=== PATIENT | male | born 1955 | race Caucasian/White ===

== ENCOUNTER 2016-10-05 14:46 | Inpatient (IN) | payer OTHER, BC ==
[~2016-10-05] VITALS: Ht 177.8 cm; Wt 100.0 kg
[2016-10-06] MEDS ORDERED: LOSA100T PO (08:51)
[2016-10-06] MEDS ORDERED: HYDR25TA5 PO (08:51)
[2016-10-06] MEDS ORDERED: MELO-1 PO (08:51)
[2016-10-06] MEDS ORDERED: HYDR-3583 PO (08:51)
[2016-10-06] MEDS ORDERED: LYRI75CA PO (08:51)
[2016-10-06] MEDS ORDERED: TURM500C PO (08:53)
[2016-10-06] MEDS ORDERED: FISH1000 PO (08:53)
[2016-10-06] MEDS ORDERED: CINN500C PO (08:53)
[2016-10-11] MEDS ORDERED: CHLORHEXIDINE GLUCONATE 2 % 1 PACK (2 CLOTHS) TOPICAL PRN (07:00)
[2016-10-11] MEDS ORDERED: SODIUM CHLORID 0.9% 500 ML IV PRN (07:00)
[2016-10-11] MEDS ORDERED: METOPROLOL TARTRATE 25 MG TAB PO PRN (07:00)
[2016-10-11] MEDS ORDERED: POVIDONE IODINE 5% (ANTISEPSIS KIT) 4 APPLICATIONS EACH NARE PRN (07:00)
[2016-10-11] MEDS ORDERED: LACTATED RINGER'S 1000 ML IV PRN (07:00)
[2016-10-11] MEDS ORDERED: INSULIN HUMAN REGULAR 1,000 UNITS/10 ML VIAL SQ PRN (07:00)
[2016-10-11] MEDS: SODIUM CHLOR 0.9% 1000 ML INJ 1,000 ML IV SCH (07:00)
[2016-10-11 07:15] VITALS: BP 128/82; PULSE 66; RESP 18; TEMP 98.8; O2SAT 98
[2016-10-11] MEDS ORDERED: ceFAZolin 2 GM PREMIX 50 ML ONE ×2 (07:26→14:02)
[2016-10-11] MEDS ORDERED: GENTAMICIN SULFATE 80 MG/2 ML VIAL ONE (07:26)
[2016-10-11] MEDS ORDERED: GELFOAM SIZE 100 ONE (07:26)
[2016-10-11] MEDS ORDERED: THROMBIN (TOPICAL) 5,000 UNIT VIAL ONE (07:26)
[2016-10-11] MEDS: VANCOMYCIN HCL 1000 MG ON-CALL/NS 250 ML IV SCH ×4 (08:45)
[2016-10-11] MEDS ORDERED: ACETAMINOPHEN 1000 MG/100 ML VIAL IV ONE (09:04)
[2016-10-11] MEDS ORDERED: fentaNYL CITRATE 250 MCG/5 ML AMP ONE ×2 (09:04→09:05)
[2016-10-11] MEDS ORDERED: ARTIFICIAL TEARS OPTH OINT 3.5 APPLIC/3.5 GM TUBO ONE (09:04)
[2016-10-11] MEDS ORDERED: MIDAZOLAM HCL 2 MG/2 ML VIAL ONE ×2 (09:05)
[2016-10-11] MEDS ORDERED: FAMOTIDINE 20 MG/2 ML VIAL ONE (09:05)
[2016-10-11] MEDS ORDERED: ePHEDrine/NS 25 MG/5 ML SYR IV ONE (12:00)
[2016-10-11] MEDS ORDERED: NEOSTIGMINE 3 MG/3 ML SYR IV ONE (12:00)
[2016-10-11] MEDS ORDERED: LACTATED RINGER'S 1000 ML INJ 3,000 ML IV ONE (12:00)
[2016-10-11] MEDS ORDERED: PROPOFOL 200 MG/20 ML AMP IV ONE (12:00)
[2016-10-11] MEDS ORDERED: ONDANSETRON HCL 4 MG/2 ML VIAL IV PUSH ONE (12:00)
[2016-10-11] MEDS ORDERED: NALOXONE HCL 0.4 MG/ML AMP IV PRN (16:15)
[2016-10-11] MEDS ORDERED: SODIUM CHLORIDE 0.9% FLUSH 5 ML FLUSH IVF PRN (16:15)
[2016-10-11] MEDS ORDERED: MAGNESIUM HYDROXIDE SUSP 30 ML CUP PO PRN (16:15)
[2016-10-11] MEDS ORDERED: cloNIDine HCL 0.1 MG TAB PO/NG PRN (16:15)
[2016-10-11] MEDS ORDERED: CYCLOBENZAPRINE HCL 10 MG TAB PO PRN (16:15)
[2016-10-11] MEDS ORDERED: ACETAMINOPHEN 325 MG TAB PO PRN (16:15)
[2016-10-11] MEDS ORDERED: ACETAMINOPHEN/HYDROcodone 325 MG/10 MG TAB PO PRN ×2 (16:15)
[2016-10-11] MEDS ORDERED: diphenhydrAMINE HCL 50 MG/ML VIAL IV PRN (16:15)
[2016-10-11] MEDS ORDERED: MENTHOL LOZENGE BUCCAL PRN (16:15)
[2016-10-11] MEDS ORDERED: RESP: ALBUTEROL 2.5 MG/3 ML NEB (PRN) INH (16:15)
[2016-10-11] MEDS ORDERED: MORPHINE SULFATE 4 MG/ML INJ IV PUSH PRN (16:15)
--- NOTE | 2016-10-11 16:54 | PD.OP ---
Operative Report Date of Surgery: October 11, 2016 Preoperative Diagnosis: Lumbar spondylosis Postoperative Diagnosis: Lumbar spondylosis Procedure: L4-L5 laminectomy, interbody arthrodhesis using PEEK cage and autologous bone graft, L4-L5 instrumental fixation using transpedicular screws and rods, L4-L5 posterolateral fusion using autologous bone graft and demineralized bone matrix. Microsurgical dissection Anesthesia: general Surgeon: Ronny Cabrales Foot Orthopedist(s): hellen hermosillo Operation and Findings: INDICATIONS FOR THE SURGICAL PROCEDURE Mr Parra is a 60 year-old female who presented with intractable mechanical back pain and ryann evidence of lower extremity radiculopathy. she had history of a prior L5-S1 fusion done before and has developed severe adjacent level degenerative disk disease, with a disk herniation at L4-L5. She has failed nonsurgical management conservative treatment. A surgical decompression and arthrodhesis were indicated as a last resort. The [id number] details of the procedure, indications, alternatives, risks and potential complications were fully discussed with the patient. The patient fully understood. All the questions were answered. No guarantees were given. The patient voiced requesting the procedure and provided informed consents. The patient was offered the alternative of delaying the procedure and continuing with nonsurgical management. DETAILS OF THE SURGICAL PROCEDURE Prior to the procedure, the surgical incision was marked in the preoperative surgical holding room, and the procedure, risks, and potential complications revisited with the patient. Placement of electrodes for intraoperative neurophysiological monitoring was completed. The patient was taken to the operative room, and following induction of general anesthesia, endotracheal intubation was performed. A Hill catheter, bilateral MARSHA hose and sequential compression devices were placed and kept throughout the procedure. The patient was positioned prone, over a Severo table over bolsters , maintaining the normal spinal lordosis. All pressure in the preoperative surgical holding room points were carefully padded with eggcrate and gel mattress. The eyes were tapped shut after ointment was applied by the anesthesiologist to prevent corneal abrasion. A Epi hugger was placed over the exposed lower body to maintain control of the core body temperature. The electrophysiological team placed the needles and electrodes in their proper location and baseline SSEP's and motor evoked potentials were registered. The entrance to each pedicles was marked using a C-arm. The lumbar region was prepped and draped in the usual sterile fashion. The surgical procedure was performed in several steps as follow: SURGICAL APPROACH Once the patient was positioned, a localizing cross-table lateral x-ray was performed with a C-arm.. A microsurgical self-retaining retractor was placed on the incision, and a localizing lateralizing cross-table x-ray was performed with an instrument underneath a lamina of the lumbar spine. INSTRUMENTAL FIXATION At this point in the procedure, placement of bilateral transpedicular screws was necessary for stabilization of the spine. Initially, the cross links from the previous instrumentation were removed, following by removal of the screw caps at L5 to S1. The cross link and rods were carefully removed. Then transpedicular screws were placed at L4. Initially, the entry point for the screw was selected anatomically at the junction of the facet, with the transverse process, and the pars interarticularis at L4. This was started with a Giamshetti needle followed by the use of a leonardo wire. A tap was used to create the threads for the screws. Finally bilateral transpedicular screws were carefully placed bilaterally at L4, under fluoroscopic visualization. An appropriate purchase was achieved with all screws. The position of each screw was assessed anatomically with an AP, lateral, oblique Xrays. An intraoperative scan view of the spine was then performed using the iso-centric c-arm. Each screw was then assessed electrophysiologically stimulating each screw with a nerve stimulator. SURGICAL DECOMPRESSION There was significant mass effect with compression of the neural structures. In order to relieve neural compression, it was necessary to perform a decompressive laminectomy, with decompression of the spinal canal and lateral recess. Note that the scope of such decompression was significantly more extensive than the minimal exposure necessary to perform an interbody fusion, as there was extreme facet arthropathy with near complete collapse of the disk spaces and severe stenosis cause by the hypertrophic joint facets. At this point of the procedure the operative microscope was draped in the usual sterile fashion and brought to the field. The rest of the surgical procedure was performed using microdissection technique with the exception of the closure. The margins of the previous laminectomy were exposed. Under the operating microscope, a bilateral decompressive laminectomy was carried out at L4-5 as follow: given the previous laminectomy and significant scaring which was threatening the dural sac, it was necessary to further drill the facet to allow proper exposure of the disk. The laminae, base of the spinous processes and facets were carefully drilled exposing the ligamentum flavum. The facets were abnormal, with instability. A disk protrusion was compressing the neural structures and exiting nerve roots. A near complete facetectomy was necessary resulting in further mechanical instability. The ligamentum flavum appeared hypertrophic, which in combination to scar tissue resulted on mass effect on the dorsal surface of the neural structures. The superior free border of the ligamentum flavum was elevated with a ligament dissector and the ligamentum flavum and scar tissue were removed with a 3 and 4 mm Kerrison forceps. The scar tissue and ligament were very adherent to the dural sac and during the dissection, and extreme care was taken during the dissection. The exiting nerve roots were identified, and a wide foraminotomy was performed with a Kerrison in their trajectory towards the neural foramen. Epidural veins located laterally to the dural sac were coagulated with the bipolar cautery, and then incised using microscissors. Gentle medial retraction of the dural sac allowed me to expose the disc space for the discectomy. Upon completion of the discectomy, an excellent decompression of the neural structures was achieved. Increased motion was noted thorough the procedure, which was consistent with mechanical instability. INTERBODY ARTHRODESIS In order to correct the narrowing of the disk space and maintain distraction of the space, and to achieve a solid interbody fusion, it was necessary the insertion of an interbody device into the disk space. Otherwise, the disk space would collapse, compromising the result of the surgical procedure. At this point of the procedure, the annulus fibrosus of the disk was carefully coagulated with a bipolar cautery and incised using an 11 bladed knife. Then, a microdiscectomy was carried out in a standard fashion using a combination of straight and up-biting pituitary forceps. A reverse angle curette was applied underneath the posterior longitudinal ligament, and used to push the disk fragments into the disk space, so they can be safely removed with a pituitary forceps. Once the discectomy was completed, it was necessary to decorticate the endplates, in order to eliminate the cartilaginous endplate and to expose healthy bone appropriate to perform the interbody fusion. The endplates at L4-5 were then thoroughly decorticated using increasing size bone joe and ring curets, eliminating the cartilaginous fragments from both, the superior and inferior endplates. A disk space distractor was applied to the pedicle screws and gentle distraction was applied. This maneuver was assisted by the use of a disk distractor. Increased motility was noted at the disk, which was consistent with instability due to facet arthropathy. Once a thorough preparation of the disk space was achieved, the disk space was irrigated with antibiotic solution, and the interbody fusion was performed by carefully impacting PPEK cage. The disk space was filled with autologous bone graft. The cage was cartefully deployed and expanded. . A solid position of the cage with good purchase was achieved. The position of the cage was assessed anatomically with a probe and radiologically with the C-arm. POSTEROLATERAL FUSION The posterolateral fusion is a critical component to the procedure, to prevent future fatigue and failure of the instrumental fixation. Initially, the transverse processes of the vertebral bodies, lateral surface of the facets and the lateral gutters of the spine were carefully cleaned, eliminating all soft tissue and muscle attachments. The area was then irrigated with a large amount of antibiotic solution. Subsequently, the transverse processes, lateral surface of the facets, and lateral gutters of the spine were thoroughly decorticated using the TPS drill with a 5mm cutting kayla, exposing cancellous bone, in preparation for the posterolateral fusion. The incision was again irrigated with antibiotic solution. Then, the posterolateral fusion was then performed by carefully packing the lateral gutters of the spine at L4-5 with autologous bone combined with demineralized bone matrix. I packed as much bone as possible. COMPLETION OF THE INSTRUMENTATION AND CLOSURE The rods were brought to the field, applied to all the screws, and the screw caps were sequentially applied. AT L4-5 it was not possible to apply the caps as the screws were stripped. The old screws were removed and 50mm screws placed at L5 and 40mm at the right S1. It was not possible to place a screw at S1 on the left, as the previous screw was fractured. Compression was performed between the pedicle screws, and final tightening of the screws was completed using a torque wrench. The incision was again thoroughly irrigated with several liters of antibiotic solution, and hemostasis secured with the bipolar cautery. A Valsalva Maneuver performed by the anesthesiologist failed to show any evidence of cerebrospinal fluid leak or bleeding. A 7 mm fluted Severo-Porras drain was left in the epidural space and externalized through a separate stab incision. The incision was then closed in planes. 0 Vicryl was used in an interrupted fashion to close the thoracolumbar fascia and the superficial fascia. The subcutaneous tissue was then approximated using 3-0 Vicryl in an interrupted fashion. Special care was taken to avoid space. The skin was then closed with 4-0 Vicryl in a running, subcuticular fashion. Each plane of closure was irrigated with antibiotic solution. At the end of the procedure the sponge, needle and instrument counts were all correct. Estimated blood loss was 250 to 300 cc or less. No blood transfusion was given. No complications. The entire procedure was performed using continuous electrophysiological monitoring of the somato sensorial evoked potentials and EMG. The patient received prophylactic antibiotics. The patient was then extubated and transferred to the recovery room in stable condition. Ronny Cabrales MD October 11, 2016 16:54
[2016-10-11] MEDS: NS + KCL 20 MEQ INJ 1,000 ML IV SCH (17:00)
[2016-10-11 17:05] VITALS: PULSE 127
[2016-10-11] MEDS ORDERED: DILTIAZEM HCL 25 MG/5 ML VIAL ONE (17:09)
[2016-10-11] MEDS ORDERED: AMIODARONE HCL 150 MG/3 ML VIAL ONE (17:27)
--- NOTE | 2016-10-11 17:43 | RADRPT ---
EXAM DATE/TIME: 10/11/2016 10:12 [facility] COMPARISON: No previous studies available for comparison. INDICATIONS : Fusion L4,L5 with replacement screw and rods L5,S1. MEDICAL HISTORY : None. SURGICAL HISTORY : Fusion, lumbar. Pain stimulator. ENCOUNTER: Initial ACUITY: 1 day PAIN SCORE: Non-responsive. LOCATION: Lumbar spine. FINDINGS: 2 magnified C-arm spot views are centered over the lumbosacral junction. Posterior fixation involving L4, L5, and S1. This is bilateral at L4 and L5 with a right unilateral and S1. A fractured pedicle s crew seen at L1 on the left. Intervening bone graft device is in good position. Normal alignment. CONCLUSION: Limited images as detailed above. Tree Hanna Jr., MD on October 11, 2016 at 17:40 Board Certified Radiologist. This report was verified electronically.
[2016-10-11] MEDS ORDERED: DILTIAZEM HCL 25 MG/5 ML VIAL IV PRN ×2 (18:00)
[2016-10-11] MEDS ORDERED: DO NOT ADM ANY ANTICOAGULANT DRUGS PRN (18:00)
[2016-10-11] MEDS ORDERED: *MEPERIDINE 25 MG INJ VIAL PERIprocedural Use ONLY ONE (18:07)
[2016-10-11 18:12] LABS: ANION GAP 13 MEQ/L (5-15); BICARBONATE 23.8 MEQ/L (21.0-32.0); BLOOD UREA NITROGEN 15 MG/DL (7-18); CHLORIDE 103 MEQ/L (98-107); GLOMERULAR FILTRATION RATE 51 ML/MIN (>89); POTASSIUM 3.8 MEQ/L (3.5-5.1); SODIUM (NA) 140 MEQ/L (136-145)
[2016-10-11 18:16] LABS: CREATINE KINASE 336 U/L (39-308)
[2016-10-11 18:28] LABS: CKMB 2.6 NG/ML (0.5-3.6)
[2016-10-11] MEDS ORDERED: AMIODARONE 150 MG/D5W 97 ML BOLUS 60 MINUTES IV ONE ×2 (18:45)
[2016-10-11] MEDS ORDERED: DILTIAZEM HCL 25 MG/5 ML VIAL IV ONE ×2 (18:45)
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
[2016-10-11] MEDS: HYDROmorphone HCL PCA 6 MG/30 ML IV SCH (19:13)
[2016-10-11] MEDS ORDERED: *HYDROmorphone PF 1 MG VIAL PERIprocedural Use ONLY ONE (19:13)
[2016-10-11] MEDS ORDERED: LORazepam 2 MG/ML VIAL ONE (19:23)
[2016-10-11 21:00] VITALS: PULSE 75
[2016-10-11] MEDS: PREGABALIN 75 MG CAP PO SCH (21:00)
[2016-10-11] MEDS: DOCUSATE SODIUM 100 MG CAP PO SCH (21:00)
[2016-10-11] MEDS: SODIUM CHLORIDE 0.9% FLUSH 5 ML FLUSH IVF SCH (21:00)
[2016-10-11] MEDS ORDERED: NON-FORMULARY DRUG (Omega-3 Fatty Acids (Fish Oil) 1 CAP) PO SCH (21:00)
[2016-10-11] MEDS: PCA - TOTAL MG DILAUDID DELIVERED PER SHIFT SCH (22:30)
[2016-10-11] MEDS: ceFAZolin 2 GM PREMIX 50 ML IV SCH (23:10)
[2016-10-12] VITALS (7 sets, daily range): BP systolic 112–141; BP diastolic 55–78; PULSE 62–80; RESP 15–23; TEMP 97.2–97.9; O2SAT 96–100
[2016-10-12] MEDS: NS + KCL 20 MEQ INJ 1,000 ML IV SCH ×2 (03:20→14:09)
[2016-10-12] MEDS ORDERED: ONDANSETRON HCL 4 MG/2 ML VIAL ONE ×2 (04:13→09:12)
[2016-10-12] MEDS: PCA - TOTAL MG DILAUDID DELIVERED PER SHIFT SCH ×2 (05:50→14:00)
[2016-10-12 05:58] LABS: AUTOMATED NEUTROPHIL # 14.5 TH/MM3 (1.8-7.7); BASOPHIL % 0.1 % (0.0-2.0); HEMATOCRIT 38.6 % (39.0-51.0); HEMO FLAGS DIFF FINAL; LYMPH % 7.4 % (9.0-44.0); LYMPHOCYTE # 1.2 TH/MM3 (1.0-4.8); MEAN CELL VOLUME 89.4 FL (80.0-100.0); MEAN CORPUSCULAR HEMOGLOBIN 29.6 PG (27.0-34.0); MEAN CORPUSCULAR HGB CONC 33.1 % (32.0-36.0); MONO % 7.2 % (0.0-8.0); NEUT % 85.3 % (16.0-70.0); PLATELET COUNT 115 TH/MM3 (150-450); RED BLOOD COUNT 4.32 MIL/MM3 (4.50-5.90)
[2016-10-12 06:17] LABS: ANION GAP 8 MEQ/L (5-15); AST (GOT) 75 U/L (15-37); BLOOD UREA NITROGEN 15 MG/DL (7-18); CHLORIDE 106 MEQ/L (98-107); GLOMERULAR FILTRATION RATE 61 ML/MIN (>89); MAGNESIUM 2.1 MG/DL (1.5-2.5); POTASSIUM 4.3 MEQ/L (3.5-5.1); SODIUM (NA) 140 MEQ/L (136-145)
[2016-10-12 06:20] LABS: ALKALINE PHOSPHATASE 50 U/L (45-117); ALT (GPT) 49 U/L (12-78); TOTAL BILIRUBIN ADULT 0.5 MG/DL (0.2-1.0)
[2016-10-12] MEDS: ceFAZolin 2 GM PREMIX 50 ML IV SCH ×2 (06:22→14:10)
[2016-10-12] MEDS: SODIUM CHLOR 0.9% 1000 ML INJ 1,000 ML IV SCH (07:00)
[2016-10-12] MEDS: SODIUM CHLORIDE 0.9% FLUSH 5 ML FLUSH IVF SCH ×2 (07:20→22:53)
[2016-10-12] MEDS: DOCUSATE SODIUM 100 MG CAP PO SCH ×2 (08:27→22:52)
[2016-10-12] MEDS: PANTOPRAZOLE SODIUM 40 MG VIAL IVP SCH (08:27)
[2016-10-12] MEDS: HYDROCHLOROTHIAZIDE 25 MG TAB PO SCH (08:27)
--- NOTE | 2016-10-12 08:52 | EKG ---
Date Performed: 10/11/2016 Time Performed: 17:17:33 PTAGE: 60 years EKG: ATRIAL FIBRILLATION WITH RAPID VENTRICULAR RESPONSE MARKED LEFT AXIS DEVIATION MINIMAL ST D EPRESSION ABNORMAL ECG PREVIOUS TRACING : 10/06/2016 08.29 DOCTOR: Clayton Waters Interpretating Date/Time 10/12/2016 08:49:36
[2016-10-12] MEDS: ONDANSETRON HCL 4 MG/2 ML VIAL IV PRN ×2 (09:17→18:32)
--- NOTE | 2016-10-12 09:20 | HHI.NSPN ---
(Danelle Johnson) Note Status Status: Progress Note (Danelle Johnson) Interval History Interval History Mr. Parra is a 60 y/o male s/p L4-5 laminectomy with interbody arthrodesis, posterolateral fixation using transpedicular screws and rods on 10/11/16. His surgery went well without complications. In recovery, patient developed A. Fib with RVR, cardioverted back to sinus rhythm following amiodarone and cardizem bolus. Negative troponin. He denies history of A. Fib or CVA. He denies dysarthria, hemiparesis, diplopia, chest pain, difficulty breathing. He c/o of nausea from pain medications. Pain currently controlled. (Danelle Johnson) Labs, Micro, & Vital Signs Results Date Time Temp Pulse Resp B/P Pulse Ox O2 Delivery O2 Flow Rate FiO2 10/12/16 09:11 100 Nasal Cannula 2.00 10/12/16 08:00 97.9 63 15 141/78 96 10/12/16 08:00 63 10/12/16 07:00 97 Nasal Cannula 3.00 10/12/16 06:00 65 10/12/16 04:45 80 10/12/16 04:45 97.5 62 23 115/71 96 10/12/16 04:00 74 10/12/16 04:00 97.5 74 12 123/64 98 Nasal Cannula 3 10/12/16 03:00 87 13 147/76 97 Nasal Cannula 3 10/12/16 02:00 73 12 141/73 98 Nasal Cannula 3 10/12/16 02:00 73 10/12/16 01:00 97.6 69 14 118/61 98 Nasal Cannula 3 10/12/16 00:00 71 10/12/16 00:00 71 14 126/57 97 Nasal Cannula 3 10/11/16 23:00 82 12 116/74 98 Nasal Cannula 3 10/11/16 22:30 12 10/11/16 22:30 12 10/11/16 22:00 77 10/11/16 22:00 77 13 107/58 97 Nasal Cannula 3 10/11/16 21:00 75 10/11/16 21:00 75 14 101/56 98 Nasal Cannula 3 10/11/16 19:13 16 10/11/16 18:45 78 15 102/62 97 Nasal Cannula 4 10/11/16 18:30 88 15 114/59 97 Nasal Cannula 4 10/11/16 18:20 88 10/11/16 18:15 123 15 133/74 97 Nasal Cannula 4 10/11/16 18:00 131 15 185/117 99 Nasal Cannula 4 10/11/16 17:45 103 15 152/83 95 Nasal Cannula 4 10/11/16 17:30 123 15 181/135 90 Nasal Cannula 4 10/11/16 17:15 113 15 110/68 98 Nasal Cannula 4 10/11/16 17:05 127 10/11/16 17:05 97.5 127 15 118/67 97 Nasal Cannula 4 10/12/16 07:00 Intake Total 9042 ml Output Total 4890 ml Balance 4152 ml Constitutional Vital Signs Date Time Temp Pulse Resp B/P Pulse Ox O2 Delivery O2 Flow Rate FiO2 10/12/16 09:11 100 Nasal Cannula 2.00 10/12/16 08:00 97.9 63 15 141/78 96 10/12/16 08:00 63 10/12/16 07:00 97 Nasal Cannula 3.00 10/12/16 06:00 65 10/12/16 04:45 80 10/12/16 04:45 97.5 62 23 115/71 96 10/12/16 04:00 74 10/12/16 04:00 97.5 74 12 123/64 98 Nasal Cannula 3 10/12/16 03:00 87 13 147/76 97 Nasal Cannula 3 10/12/16 02:00 73 12 141/73 98 Nasal Cannula 3 10/12/16 02:00 73 10/12/16 01:00 97.6 69 14 118/61 98 Nasal Cannula 3 10/12/16 00:00 71 10/12/16 00:00 71 14 126/57 97 Nasal Cannula 3 10/11/16 23:00 82 12 116/74 98 Nasal Cannula 3 10/11/16 22:30 12 10/11/16 22:30 12 10/11/16 22:00 77 10/11/16 22:00 77 13 107/58 97 Nasal Cannula 3 10/11/16 21:00 75 10/11/16 21:00 75 14 101/56 98 Nasal Cannula 3 10/11/16 19:13 16 10/11/16 18:45 78 15 102/62 97 Nasal Cannula 4 10/11/16 18:30 88 15 114/59 97 Nasal Cannula 4 10/11/16 18:20 88 10/11/16 18:15 123 15 133/74 97 Nasal Cannula 4 10/11/16 18:00 131 15 185/117 99 Nasal Cannula 4 10/11/16 17:45 103 15 152/83 95 Nasal Cannula 4 10/11/16 17:30 123 15 181/135 90 Nasal Cannula 4 10/11/16 17:15 113 15 110/68 98 Nasal Cannula 4 10/11/16 17:05 127 10/11/16 17:05 97.5 127 15 118/67 97 Nasal Cannula 4 10/12/16 07:00 Intake Total 9042 ml Output Total 4890 ml Balance 4152 ml (Danelle Johnson) Review of Systems/Exam Exam Mr. Parra is alert, awake and oriented to time, place and person. Speech is fluent. Follows commands well. Cranial nerve examination: pupils equal, round and reactive to light. Extra- ocular movements are intact. Facial motor are normal and symmetrical. Neck is soft and supple Muscle strength is normal in all muscle groups of both upper and lower extremities. Sensory examination is intact to light touch in both the upper and lower extremities. There is a bilateral plantar flexion response. Cerebellar examination is unremarkable (Danelle Johnson) Medications Current Medications Current Medications Medications (Trade) Dose Ordered Sig/Esther Route PRN Reason Start Time Stop Time Status Last Admin Dose Admin Lactated Ringer's 1,000 ml @ 30 mls/hr Q24H PRN IV SEE LABEL COMMENTS 10/11/16 07:00 10/14/16 06:59 Sodium Chloride 500 ml @ 30 mls/hr [id number] PRN IV SEE LABEL COMMENTS 10/11/16 07:00 10/14/16 06:59 Sodium Chloride 1,000 ml @ 30 mls/hr Q24H IV 10/11/16 07:00 Potassium Chloride/Sodium Chloride (NS + KCl 20 Meq Inj) 1,000 ml @ 100 mls/hr Q10H IV 10/11/16 17:00 10/12/16 03:20 IV Flush (NS Flush) 2 ml UNSCH PRN IVF FLUSH AFTER USING IV ACCESS 10/11/16 16:15 IV Flush 2 ml 2 ml BID IVF 10/11/16 21:00 10/12/16 07:20 Cefazolin Sodium/ Dextrose (Ancef 2 Gm Premix) 50 ml @ 100 mls/hr Q8H IV 10/11/16 22:00 10/12/16 14:29 10/12/16 06:22 Docusate Sodium (Colace) 100 mg BID PO 10/11/16 21:00 10/12/16 08:27 Magnesium Hydroxide (Milk Of Magnesia Liq) 30 ml DAILY PRN PO CONSTIPATION 10/11/16 16:15 Pantoprazole Sodium (Protonix Inj) 40 mg DAILY IVP 10/12/16 09:00 10/12/16 08:27 Morphine Sulfate (Morphine Inj) 2 mg Q4HR PRN IV PUSH breakthrough pain 10/11/16 16:15 Cyclobenzaprine HCl (Flexeril) 10 mg Q8H PRN PO MUSCLE SPASM 10/11/16 16:15 Clonidine (Catapres) 0.1 mg Q6H PRN PO/NG SYS BP GREATER THAN 170 MMHG 10/11/16 16:15 Acetaminophen (Tylenol) 650 mg Q4H PRN PO TEMPERATURE > 101.5 F 10/11/16 16:15 Menthol ([place]) 1 lozenge UNSCH PRN BUCCAL SORE THROAT 10/11/16 16:15 Hydrochlorothiazide (Hydrodiuril) 25 mg DAILY PO 10/12/16 09:00 10/12/16 08:27 Losartan Potassium (Cozaar) 100 mg DAILY PO 10/12/16 09:00 Pregabalin (Lyrica) 75 mg HS PO 10/11/16 21:00 Naloxone HCl (Narcan Inj) 0.4 mg UNSCH PRN IV RESPIRATORY RATE LESS THAN 10 10/11/16 16:15 Diphenhydramine HCl (Benadryl Inj) 25 mg Q6H PRN IV ITCHING 10/11/16 16:15 Hydromorphone HCl (Dilaudid FIBERGLASS LAMINATOR Inj) 6 mg UNSCH IV 10/11/16 16:15 10/11/16 19:13 FIBERGLASS LAMINATOR Dosage Infused (Pha) 1 Q8HR .XX 10/11/16 16:15 10/12/16 05:50 Acetaminophen/ Hydrocodone Bitart ([place] 10-325 Mg) 1 tab Q4H PRN PO PAIN SCALE 1 TO 5 10/11/16 16:15 Acetaminophen/ Hydrocodone Bitart ([place] 10-325 Mg) 2 tab Q4H PRN PO PAIN SCALE 6 TO 10 10/11/16 16:15 Miscellaneous Information ALL NURSING DEPARTME... UNSCH PRN .XX SEE LABEL COMMENTS 10/11/16 18:00 10/12/16 17:59 (Danelle Johnson) Medical Decision Making MDM Remarks 60 y/o male s/p L4-5 PLIF on 10/11/16, POD 1, surgical pain controlled A. Fib with RVR converted back to NSR (Danelle Johnson) Plan Plan Remarks neuro exam stable, nonfocal, cont current pain mgt with FIBERGLASS LAMINATOR, oral Lortab prn IS every hour SCDs and TEDs for dvt proph, Protonix for ulcer proph dc gutierrez catheter PT, LSO when out of bed, (Danelle Johnson) Attending Statement The exam, history, and the medical decision-making described in the above note were completed with the assistance of the mid-level provider. I reviewed and agree with the findings presented. I attest that I had a [id number] encounter with the patient on the same day, and personally performed and documented my assessment and findings in the medical record. (Ronny Cabrales MD) Danelle Johnson October 12, 2016 09:19 Ronny Cabrales MD October 16, 2016 20:54
[2016-10-12] MEDS: LOSARTAN 50 MG TAB PO SCH (09:33)
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
[2016-10-12] MEDS: METOPROLOL TARTRATE 25 MG TAB PO SCH ×2 (10:00→22:52)
[2016-10-12] MEDS: HYDROmorphone HCL PCA 6 MG/30 ML IV SCH (11:05)
[2016-10-12] MEDS: PREGABALIN 75 MG CAP PO SCH (22:52)
[2016-10-13] VITALS (10 sets, daily range): BP systolic 97–130; BP diastolic 50–64; PULSE 70–78; RESP 18–20; TEMP 98.6–101.1; O2SAT 96–98
[2016-10-13] MEDS: NS + KCL 20 MEQ INJ 1,000 ML IV SCH ×4 (00:51→20:35)
[2016-10-13] MEDS: PCA - TOTAL MG DILAUDID DELIVERED PER SHIFT SCH ×3 (06:00→21:57)
[2016-10-13] MEDS: SODIUM CHLORIDE 0.9% FLUSH 5 ML FLUSH IVF SCH ×2 (09:00→20:33)
[2016-10-13] MEDS: LOSARTAN 50 MG TAB PO SCH (09:23)
[2016-10-13] MEDS: HYDROCHLOROTHIAZIDE 25 MG TAB PO SCH (09:24)
[2016-10-13] MEDS: DOCUSATE SODIUM 100 MG CAP PO SCH ×2 (09:24→20:33)
[2016-10-13] MEDS: METOPROLOL TARTRATE 25 MG TAB PO SCH ×2 (09:25→20:33)
[2016-10-13] MEDS: PANTOPRAZOLE SODIUM 40 MG VIAL IVP SCH (09:26)
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
--- NOTE | 2016-10-13 14:26 | HHI.NSPN ---
(Danelle Johnson) Note Status Status: Progress Note (Danelle Johnson) Interval History Interval History Mr. Parra is a 60 y/o male s/p L4-5 laminectomy with interbody arthrodesis, posterolateral fixation using transpedicular screws and rods on 10/11/16. His surgery went well without complications. In recovery, patient developed A. Fib with RVR, cardioverted back to sinus rhythm following amiodarone and cardizem bolus. Negative troponin. He denies history of A. Fib or CVA. He denies dysarthria, hemiparesis, diplopia, chest pain, difficulty breathing. He c/o of nausea from pain medications. Pain currently controlled. 10/13: sitting up in chair, surgical pain improving. nausea is better. denies chest pain, shortness of breath, difficulty breathing. (Danelle Johnson) Labs, Micro, & Vital Signs Results Date Time Temp Pulse Resp B/P Pulse Ox O2 Delivery O2 Flow Rate FiO2 10/13/16 12:14 99.3 73 20 104/64 98 10/13/16 11:38 98 21 10/13/16 08:01 98.6 76 20 121/63 98 10/13/16 05:43 99.5 73 18 97/50 97 10/13/16 02:57 71 10/13/16 01:17 99.9 72 20 102/52 97 10/12/16 20:00 97.9 74 20 112/55 100 10/12/16 16:30 97.2 72 20 123/62 99 10/12/16 14:24 97.8 71 18 129/67 99 10/13/16 07:00 Output Total 3310 ml Balance -3310 ml Constitutional Vital Signs Date Time Temp Pulse Resp B/P Pulse Ox O2 Delivery O2 Flow Rate FiO2 10/13/16 12:14 99.3 73 20 104/64 98 10/13/16 11:38 98 21 10/13/16 08:01 98.6 76 20 121/63 98 10/13/16 05:43 99.5 73 18 97/50 97 10/13/16 02:57 71 10/13/16 01:17 99.9 72 20 102/52 97 10/12/16 20:00 97.9 74 20 112/55 100 10/12/16 16:30 97.2 72 20 123/62 99 10/12/16 14:24 97.8 71 18 129/67 99 10/13/16 07:00 Output Total 3310 ml Balance -3310 ml (Danelle Johnson) Review of Systems/Exam Exam Mr. Parra is alert and oriented x 3 Speech is fluent. Follows commands well. Sitting up in chair with LSO brace. Cranial nerve examination: pupils equal, round and reactive to light. Facial motor are normal and symmetrical. Neck is soft and supple Muscle strength is normal in all muscle groups of both upper and lower extremities. Sensory examination is intact to light touch in both the upper and lower extremities. There is a bilateral plantar flexion response. (Danelle Johnson) Medications Current Medications Current Medications Medications (Trade) Dose Ordered Sig/Esther Route PRN Reason Start Time Stop Time Status Last Admin Dose Admin Potassium Chloride/Sodium Chloride (NS + KCl 20 Meq Inj) 1,000 ml @ 100 mls/hr Q10H IV 10/11/16 17:00 10/13/16 11:40 IV Flush (NS Flush) 2 ml UNSCH PRN IVF FLUSH AFTER USING IV ACCESS 10/11/16 16:15 IV Flush (NS Flush) 2 ml BID IVF 10/11/16 21:00 10/13/16 09:00 Docusate Sodium (Colace) 100 mg BID PO 10/11/16 21:00 10/13/16 09:24 Magnesium Hydroxide (Milk Of Magnesia Liq) 30 ml DAILY PRN PO CONSTIPATION 10/11/16 16:15 Pantoprazole Sodium (Protonix Inj) 40 mg DAILY IVP 10/12/16 09:00 10/13/16 09:26 Morphine Sulfate (Morphine Inj) 2 mg Q4HR PRN IV PUSH breakthrough pain 10/11/16 16:15 Cyclobenzaprine HCl (Flexeril) 10 mg Q8H PRN PO MUSCLE SPASM 10/11/16 16:15 10/12/16 18:37 Clonidine (Catapres) 0.1 mg Q6H PRN PO/NG SYS BP GREATER THAN 170 MMHG 10/11/16 16:15 Acetaminophen (Tylenol) 650 mg Q4H PRN PO TEMPERATURE > 101.5 F 10/11/16 16:15 Menthol ([place] Vijay) 1 lozenge UNSCH PRN BUCCAL SORE THROAT 10/11/16 16:15 Hydrochlorothiazide (Hydrodiuril) 25 mg DAILY PO 10/12/16 09:00 10/13/16 09:24 Losartan Potassium (Cozaar) 100 mg DAILY PO 10/12/16 09:00 10/13/16 09:23 Pregabalin (Lyrica) 75 mg HS PO 10/11/16 21:00 10/12/16 22:52 Naloxone HCl (Narcan Inj) 0.4 mg UNSCH PRN IV RESPIRATORY RATE LESS THAN 10 10/11/16 16:15 Diphenhydramine HCl (Benadryl Inj) 25 mg Q6H PRN IV ITCHING 10/11/16 16:15 Hydromorphone HCl (Dilaudid PARIMUTUEL TICKET CASHIER Inj) 6 mg UNSCH IV 10/11/16 16:15 10/12/16 11:05 PARIMUTUEL TICKET CASHIER Dosage Infused (Pha) 1 Q8HR .XX 10/11/16 16:15 10/12/16 14:00 Acetaminophen/ Hydrocodone Bitart ([place] 10-325 Mg) 1 tab Q4H PRN PO PAIN SCALE 1 TO 5 10/11/16 16:15 Acetaminophen/ Hydrocodone Bitart ([place] 10-325 Mg) 2 tab Q4H PRN PO PAIN SCALE 6 TO 10 10/11/16 16:15 Ondansetron HCl (Zofran Inj) 4 mg Q6H PRN IV NAUSEA OR VOMITING 10/12/16 09:15 10/12/16 18:32 Metoprolol Tartrate (Lopressor) 25 mg Q12HR PO 10/12/16 10:00 10/13/16 09:25 (Danelle Johnson) Medical Decision Making MDM Remarks 60 y/o male s/p L4-5 PLIF on 10/11/16, POD 2, surgical pain improving A. Fib with RVR converted back to NSR, stable (Danelle Johnson) Plan Plan Remarks neuro exam stable, nonfocal, cont surgical pain mgt with PARIMUTUEL TICKET CASHIER today, will dc tomorrow am, oral Lortab prn cont IS every hour SCDs and TEDs for dvt proph, Protonix for ulcer proph cont PT, LSO when out of bed, anticipate dc home tomorrow, dc home with Lopressor 25 mg BID for new onset paroxysmal atrial fibrillation per critical care recs (Danelle Johnson) Attending Statement The exam, history, and the medical decision-making described in the above note were completed with the assistance of the mid-level provider. I reviewed and agree with the findings presented. I attest that I had a [id number] encounter with the patient on the same day, and personally performed and documented my assessment and findings in the medical record. (Ronny Cabrales MD) Danelle Johnson October 13, 2016 14:26 Ronny Cabrales MD October 16, 2016 20:59
[2016-10-13] MEDS: PREGABALIN 75 MG CAP PO SCH (20:33)
[2016-10-13] MEDS: HYDROmorphone HCL PCA 6 MG/30 ML IV SCH (21:57)
[2016-10-14] VITALS: BP 122/67; PULSE 87; RESP 20; TEMP 99.1; O2SAT 96
[2016-10-14 04:00] VITALS: BP 113/77; PULSE 79; RESP 20; TEMP 99.2; O2SAT 97
[2016-10-14] MEDS: NS + KCL 20 MEQ INJ 1,000 ML IV SCH ×2 (05:00→06:30)
[2016-10-14] MEDS: PCA - TOTAL MG DILAUDID DELIVERED PER SHIFT SCH ×2 (06:00→12:11)
[2016-10-14 07:00] VITALS: BP 130/79; PULSE 90; RESP 20; TEMP 97.4; O2SAT 96
[2016-10-14] MEDS ORDERED: WALKER WHEELS/F1 MIS (08:49)
[2016-10-14] MEDS: SODIUM CHLORIDE 0.9% FLUSH 5 ML FLUSH IVF SCH (09:00)
[2016-10-14] MEDS ORDERED: HYDR-3583 PO ×2 (09:07→09:09)
[2016-10-14] MEDS: LOSARTAN 50 MG TAB PO SCH (09:20)
[2016-10-14] MEDS: DOCUSATE SODIUM 100 MG CAP PO SCH (09:20)
[2016-10-14] MEDS: METOPROLOL TARTRATE 25 MG TAB PO SCH (09:21)
[2016-10-14] MEDS: HYDROCHLOROTHIAZIDE 25 MG TAB PO SCH (09:21)
[2016-10-14] MEDS: PANTOPRAZOLE SODIUM 40 MG VIAL IVP SCH (09:22)
[2016-10-14] MEDS ORDERED: METO25TA3 PO (10:34)
--- NOTE | 2016-10-14 10:35 | HHI.DCPOC ---
Discharge Care Plan Diagnosis: (1) S/P lumbar spinal fusion Goals to Promote Your Health * To prevent worsening of your condition and complications * To maintain your health at the optimal level Directions to Meet Your Goals Take your medications as prescribed Follow your dietary instruction Follow activity as directed Keep your appointments as scheduled Take your immunizations and boosters as scheduled If your symptoms worsen call your PCP, if no PCP go to Urgent Care Center or Emergency Room Smoking is Dangerous to Your Health. Avoid second hand smoke Call the 24-hour hour crisis hotline for domestic abuse at Danelle Johnson October 14, 2016 10:35
--- NOTE | 2016-10-14 10:46 | HHI.DCPOC ---
Discharge Care Plan Diagnosis: (1) S/P lumbar spinal fusion Goals to Promote Your Health * To prevent worsening of your condition and complications * To maintain your health at the optimal level Directions to Meet Your Goals Take your medications as prescribed Follow your dietary instruction Follow activity as directed Keep your appointments as scheduled Take your immunizations and boosters as scheduled If your symptoms worsen call your PCP, if no PCP go to Urgent Care Center or Emergency Room Smoking is Dangerous to Your Health. Avoid second hand smoke Call the 24-hour hour crisis hotline for domestic abuse at Danelle Johnson October 14, 2016 10:46
--- NOTE | 2016-10-14 10:47 | HHI.DS ---
Discharge Summary Admission Date October 11, 2016 at 06:25 Discharge Date: October 14, 2016 Admitting Diagnosis s/p lumbar fusion (1) S/P lumbar spinal fusion ICD Code: Z98.1 Brief History Mr Parra is a 60 year-old female who presented with intractable mechanical back pain and ryann evidence of lower extremity radiculopathy. she had history of a prior L5-S1 fusion done before and has developed severe adjacent level degenerative disk disease, with a disk herniation at L4-L5. She has failed nonsurgical management conservative treatment. A surgical decompression and arthrodesis were indicated as a last resort. CBC/BMP: 10/12/16 0524 10/12/16 0524 Significant Findings Laboratory Tests Test 10/11/16 10/12/16 17:39 05:24 Creatinine 1.42 MG/DL (0.60-1.30) Estimat Glomerular Filtration 51 ML/MIN (>89) 61 ML/MIN (>89) Rate Random Glucose 152 MG/DL 145 MG/DL (74-106) (74-106) Calcium Level 8.1 MG/DL 7.9 MG/DL (8.5-10.1) (8.5-10.1) Total Creatine Kinase 336 U/L (39-308) Troponin I LESS THAN 0.02 NG/ML (0.02-0.05) White Blood Count 17.0 TH/MM3 (4.0-11.0) Red Blood Count 4.32 MIL/MM3 (4.50-5.90) Hemoglobin 12.8 GM/DL (13.0-17.0) Hematocrit 38.6 % (39.0-51.0) Platelet Count 115 TH/MM3 (150-450) Mean Platelet Volume 11.4 FL (7.0-11.0) Neutrophils (%) (Auto) 85.3 % (16.0-70.0) Lymphocytes (%) (Auto) 7.4 % (9.0-44.0) Neutrophils # (Auto) 14.5 TH/MM3 (1.8-7.7) Monocytes # (Auto) 1.2 TH/MM3 (0-0.9) Aspartate Amino Transf 75 U/L (15-37) (AST/SGOT) Total Protein 5.9 GM/DL (6.4-8.2) Imaging Last Impressions Lumbar Spine X-Ray 10/11/16 0000 Signed Impressions: Service Date/Time: Tuesday, October 11, 2016 10:12 - CONCLUSION: Limited images as detailed above. Tree Hanna Jr., MD Hospital Course Mr. Parra underwent a L4-L5 laminectomy, interbody arthrodesis using PEEK cage and autologous bone graft, L4-L5 instrumental fixation using transpedicular screws and rods, L4-L5 posterolateral fusion using autologous bone graft and demineralized bone matrix on October 11, 2016. His pain was managed with PERL PROGRAMMER pump that was subsequently weaned off. His surgical pain improved and tolerable on oral pain medications. He was discharged home in stable conditions. Wound care and activity restrictions were discussed. Pt Condition on Discharge: Stable Discharge Disposition: Discharge Home Discharge Instructions DIET: Follow Instructions for: Heart Healthy Diet ACTIVITIES You can perform: Weight Bearing As Dorian ADDITIONAL Activity Instructio: Avoid strenuous activities, heavy lifting, overhead activities, repetitive bending, twisting, pushing, pulling or any activities which might result in stress over the spine. Avoid situtation that will put at risk for falls. Use assistive device as needed for walking. Wear lumbar brace when out of bed. New Medications: Walker with Front Wheels (Walker with Front Wheels) 1 Mis Mis 1 EA .ROUTE DIRECTED #1 Ref 0 EA Hydrocodone-Acetaminophen (Hydrocodone-Acetaminophen) 10-325 mg Tab 1 TAB PO Q8HR PRN PAIN SCALE 1 TO 10 #90 Ref 0 TAB Metoprolol Tartrate (Metoprolol Tartrate) 25 Mg Tab 25 MG PO Q12HR #60 TAB Continued Medications: Cinnamon (Cinnamon) 500 Mg Cap 500 MG PO DAILY #1 BOTTLE Hydrochlorothiazide (Hydrochlorothiazide) 25 Mg Tab 25 MG PO DAILY #30 Ref 0 TAB Hydrocodone-Acetaminophen (Hydrocodone-Acetaminophen) 10-325 mg Tab 1 TAB PO Q6H PRN PAIN #90 Ref 0 TAB (This prescription has been renewed) Losartan (Losartan) 100 Mg Tab 100 MG PO DAILY Blood Pressure Management #30 Ref 0 TAB Meloxicam (Meloxicam) 15 Mg Tab 15 MG PO DAILY Arthritis Pain #30 Ref 0 TAB [place]-3 Fatty Acids (Fish Oil) 1,000 Mg Cap 1 CAP PO BID Pregabalin (Lyrica) 75 Mg Cap 75 MG PO HS #30 Ref 0 CAP Turmeric (Curcuma Longa) (Turmeric) 500 Mg Cap 500 MG PO DAILY Nutritional Supplement Ref 0 Danelle Jacinto October 14, 2016 10:47
[2016-10-14 12:21] VITALS: BP 123/74; PULSE 78; RESP 20; TEMP 99.2; O2SAT 97
[2016-11-01] MEDS ORDERED: TYLETAB34 PO (16:29)
== END 2016-10-14 17:00 | disposition home or self-care (01) | DRG 460 ==
LOC: HSDI 10-11 06:25 → HPAC 10-11 22:42 → N03A 10-12 04:31 → N05A 10-12 13:54
PROVIDERS: ADMIT Neurological Surgery; ATTEND Neurological Surgery
PROC: 0ST20ZZ Resection of Lumbar Vertebral Disc, Open Approach (ICD-10-PCS; 2016-10-11)
PROC: 0SG00AJ Fusion of Lumbar Vertebral Joint with Interbody Fusion Device, Posterior Approach, Anterior Column, Open Approach (ICD-10-PCS; principal; 2016-10-11 09:11)
DX: M51.16 Intervertebral disc disorders with radiculopathy, lumbar region (principal); M47.26 Other spondylosis with radiculopathy, lumbar region; G62.9 Polyneuropathy, unspecified; I48.0 Paroxysmal atrial fibrillation; I10 Essential (primary) hypertension; M19.90 Unspecified osteoarthritis, unspecified site; M54.2 Cervicalgia
CPT/HCPCS: 72100; 76000; 80048; 80053; 82550; 82552; 82948; 83735; 84100; 84484; 85025; 86850; 86900; 86901; 93005; 94150; C1713; C9113; J0131; J0282; J0690; J1170; J1580; J2060; J2175; J2250; J2405; J2710; J3010; J3370; J3480; J7050; J7120; L0484

== ENCOUNTER → 2016-10-06 | Outpatient (CLI) | payer BC, OTHER ==
[~2016-10-06] MED LIST: CINN500C PO; FISH1000 PO; HYDR-3583 PO; HYDR25TA5 PO; LOSA100T PO; LOSA25TA PO; LYRI100C PO; LYRI75CA PO; MELO-1 PO; METO25TA3 PO; TURM500C PO; TYLETAB34 PO; WALKER WHEELS/F1 MIS
[2016-10-06 10:04] LABS: APTT (PATIENT) 27.9 SEC (24.3-30.1); PROTHROMBIN TIME - PATIENT 11.1 SEC (9.8-11.6)
[2016-10-06 10:07] LABS: BLOOD, URINE NEG (NEG); COMMENT (UR) CULT NOT INDICATED; CULTURE IF INDICATED CULT NOT INDICATED; GLUCOSE,URINE NEG (NEG); KETONE, URINE NEG (NEG); MUCUS URINE FEW /lpf (OCC); NITRITE,URINE NEG (NEG); SQUAMOUS EPITHELIAL CELL URINE <1 /hpf (0-5); URINE COLOR YELLOW (YELLW/STRAW)
[2016-10-06 10:07] LABS: AUTOMATED NEUTROPHIL # 4.1 TH/MM3 (1.8-7.7); BASOPHIL # 0.1 TH/MM3 (0-0.2); BASOPHIL % 1.1 % (0.0-2.0); EOSINOPHIL # 0.3 TH/MM3 (0-0.4); EOSINOPHIL % 3.6 % (0.0-4.0); HEMATOCRIT 43.4 % (39.0-51.0); HEMO FLAGS DIFF FINAL; LYMPH % 32.5 % (9.0-44.0); LYMPHOCYTE # 2.5 TH/MM3 (1.0-4.8); MEAN CELL VOLUME 88.2 FL (80.0-100.0); MEAN CORPUSCULAR HEMOGLOBIN 29.6 PG (27.0-34.0); MEAN CORPUSCULAR HGB CONC 33.5 % (32.0-36.0); MONO % 8.6 % (0.0-8.0); NEUT % 54.2 % (16.0-70.0); PLATELET COUNT 119 TH/MM3 (150-450); RED BLOOD COUNT 4.92 MIL/MM3 (4.50-5.90); RED CELL DISTRIBUTION WIDTH 13.1 % (11.6-17.2); WHITE BLOOD COUNT 7.6 TH/MM3 (4.0-11.0)
--- NOTE | 2016-10-06 10:34 | RADRPT ---
EXAM DATE/TIME: 10/06/2016 09:17 [facility] COMPARISON: No previous studies available for comparison. INDICATIONS : Evaluate for pneumonia, pneumothorax, or communicable disease. Pre op for back surgery. MEDICAL HISTORY : None. SURGICAL HISTORY : Pain stimulator. ENCOUNTER: Initial ACUITY: 1 day PAIN SCORE: 0/10 LOCATION: Bilateral chest FINDINGS: Frontal and lateral views of the chest demonstrate a normal-sized cardiac silhouette. No effusion, co nsolidation, or pneumothorax is visualized. Spinal stimulator with its terminating in the mid thoraci c spine. Cervical spine hardware is present. CONCLUSION: No acute cardiopulmonary abnormality is identified. Matt Arreola MD on October 06, 2016 at 10:32 Board Certified Radiologist. This report was verified electronically.
[2016-10-06 10:41] LABS: ALKALINE PHOSPHATASE 57 U/L (45-117); ALT (GPT) 48 U/L (12-78); ANION GAP 8 MEQ/L (5-15); AST (GOT) 24 U/L (15-37); BICARBONATE 26.9 MEQ/L (21.0-32.0); BLOOD UREA NITROGEN 24 MG/DL (7-18); CHLORIDE 106 MEQ/L (98-107); GLOMERULAR FILTRATION RATE 63 ML/MIN (>89); GLUCOSE,FASTING 103 MG/DL (74-99); POTASSIUM 3.6 MEQ/L (3.5-5.1); SODIUM (NA) 141 MEQ/L (136-145); TOTAL BILIRUBIN ADULT 0.3 MG/DL (0.2-1.0)
--- NOTE | 2016-10-06 13:57 | EKG ---
Date Performed: 10/06/2016 Time Performed: 08:29:46 PTAGE: 60 years EKG: Sinus rhythm MARKED LEFT AXIS DEVIATION ABNORMAL ECG NO PREVIOUS TRACING DOCTOR: Khadar Hernandez Interpretating Date/Time 10/06/2016 13:55:56
== END ==
LOC: CPRE 08:03
PROVIDERS: ATTEND Neurological Surgery
DX: Z01.810 Encounter for preprocedural cardiovascular examination (principal); Z01.811 Encounter for preprocedural respiratory examination; Z01.812 Encounter for preprocedural laboratory examination; Z01.818 Encounter for other preprocedural examination; M48.06 Spinal stenosis, lumbar region; R94.31 Abnormal electrocardiogram [ECG] [EKG]
CPT/HCPCS: 36415; 71020; 80053; 81001; 85025; 85610; 85730; 93005